=== PATIENT | female | born 1985 | race African-American/Black ===

== ENCOUNTER 2020-07-07 10:21 | Outpatient (CLI) | payer OTHER, SELFPAY ==
[2020-07-07 10:50] LABS: Basophils Percent Auto 0.4 % (0.2-1.2); Eosinophils Percent Auto 0.4 % (0-4.4); Hematocrit 39.6 % (37.0-47.0); Hemoglobin 13.4 g/dL (12.0-15.0); Immature Granulocyte Absolute 0.02 K/mm3 (0.00-0.031); Immature Granulocyte Percent A 0.4 % (0-0.5); Lymphocytes Percent Auto 24.3 % (18.3-44.2); Mean Corpuscular HGB Conc 33.8 g/dl (32-36); Mean Corpuscular Hemoglobin 33.3 pg (26-34); Mean Corpuscular Volume 98.3 fl (80-100); Mean Platelet Volume 8.6 fl (7.4-10.4); Monocytes Absolute Auto 0.3 K/mm3 (0.1-0.6); Monocytes Percent Auto 5.6 % (2.6-8.5); Neutrophils Absolute Auto 3.7 K/mm3 (1.3-6.7); Neutrophils Percent Auto 68.9 % (45.5-73.1); Platelet Count Result 244 k/mm3 (150-375); Red Blood Count 4.03 M/mm3 (4.2-5.4); Red Cell Distribution Width 10.8 % (11.5-14.5); White Blood Count 5.4 K/mm3 (4.5-10.0)
[2020-07-07 11:03] LABS: Alanine Aminotransferase 10 U/L (4-35); Albumin Level 4.2 g/dL (3.5-5.1); Alkaline Phosphatase 48 U/L (38-126); Anion Gap 6 mmol/L (8-16); Aspartate Amino Transferase 19 U/L (14-36); Bilirubin,Total 0.9 mg/dL (0.2-1.3); Blood Urea Nitrogen 9 mg/dL (7-17); Calcium 9.1 mg/dL (8.4-10.2); Carbon Dioxide 29 mmol/L (22-30); Chloride 105 mmol/L (98-107); Cholesterol 165 mg/dL (0-200); Estimated Glomerular Filt Rate > 60; Glucose 89 mg/dL (65-105); HDL Direct 43 mg/dL; Sodium 140 mmol/L (137-145); Triglycerides 53 mg/dL (<150)
[2020-07-07 11:08] LABS: Rheumatoid Factor < 8.6 IU/ML (<12)
[2020-07-07 11:14] LABS: LDL Cholesterol Direct 100 mg/dL
[2020-07-07 11:42] LABS: Erythrocyte Sedimentation Rate 23 mm/hr (0-20)
[2020-07-07 11:49] LABS: Thyroid Stimulating Hormone Reflex 0.563 uIU/mL (0.465-4.68)
[2020-07-11 21:17] LABS: Anti Cyclic Citrullinated Pept <16 Units (<20)
== END 2020-07-07 10:22 | disposition home or self-care (01) ==
LOC: ANHLAB 10:23
PROVIDERS: PCP Family Medicine; Visit Provider Family Medicine
DX: E78.9 Disorder of lipoprotein metabolism, unspecified (principal); M25.50 Pain in unspecified joint; Z13.220 Encounter for screening for lipoid disorders; Z00.00 Encounter for general adult medical examination without abnormal findings
CPT/HCPCS: 36415; 80053; 80061; 84443; 85025; 85652; 86038; 86200; 86430

== ENCOUNTER → 2023-10-21 07:45 | Outpatient (CLI) | payer OTHER, SELFPAY ==
--- NOTE | ~2023-10-21 | MMUS_ITS ---
EXAMINATION: MM diagnostic dimas BI w yaritza, US breast LT limited HISTORY: Recent right 10:00 lump with erythema and warmth, now resolved TECHNIQUE: Bilateral full field ML, MLO and CC and left spot MLO and CC 3-D tomosynthesis images were performed and synthetic 2-D images were generated. CAD analysis was submitted and interpreted. High resolution targeted left breast ultrasound was performed. COMPARISON: None BREAST PARENCHYMAL COMPOSITION: There are scattered areas of fibroglandular density. FINDINGS: MAMMOGRAPHIC FINDINGS: There is an approximately 8 x 10 mm circumscribed mass in the mid inner left breast. No suspicious mass, architectural distortion, malignant calcification, skin thickening or retraction of either breast is noted otherwise. ULTRASOUND: Targeted ultrasound at 9:00 5.5 cm from the nipple reveals an irregular antiparallel hypoechoic shado wing at least 8 mm mass, with adjacent relatively prominent vascularity.The findings are highly sugge stive of malignancy. Ultrasound-guided biopsy is recommended. IMPRESSION: 1. Highly suspicious irregular anti-parallel hypoechoic shadowing mass of left breast at 9:00 5.5 cm from nipple 2. Ultrasound-guided biopsy is recommended BI-RADS category 5, highly suggestive of malignancy. Dr. Negro telephoned the report and ultrasound-guided biopsy recommendation on October 21, 2023 at 0920 h ours to Nurse Roscoe Arredondo. Reviewed, dictated and finalized at location A. TRUCTION SUPERINTENDENT IMPRESSION: 1. Highly suspicious irregular anti-parallel hypoechoic shadowing mass of left breast at 9:00 5.5 cm from nipple 2. Ultrasound-guided biopsy is recommended BI-RADS category 5, highly suggestive of malignancy. Dr. Negro telephoned the report and ultrasound-guided biopsy recommendation on 2023 at 0920 hours to Maria Elena Nurse Roscoe. IMPRESSION: 1. Highly suspicious irregular anti-parallel hypoechoic shadowing mass of left breast at 9:00 5.5 cm from nipple 2. Ultrasound-guided biopsy is recommended BI-RADS category 5, highly suggestive of malignancy. Dr. Negro telephoned the report and ultrasound-guided biopsy recommendation on 2023 at 0920 hours to Maria Elena Nurse Practitioner.
== END ==
PROVIDERS: PCP Nurse Practitioner Obstetrics & Gynecology; Visit Provider Nurse Practitioner Obstetrics & Gynecology
DX: N64.4 Mastodynia (principal); R92.8 Other abnormal and inconclusive findings on diagnostic imaging of breast
CPT/HCPCS: 76642; 77062; 77066; G0279

== ENCOUNTER 2024-01-16 10:53 | Outpatient (CLI) | payer OTHER, SELFPAY ==
[2024-01-16 14:17] LABS: Basophils Percent Auto 0.6 % (0.2-1.2); Eosinophils Percent Auto 0.4 % (0-4.4); Hematocrit 39.6 % (37.0-47.0); Immature Granulocyte Absolute 0.02 K/mm3 (0.00-0.031); Immature Granulocyte Percent A 0.4 % (0-0.5); Lymphocytes Absolute Auto 1.18 K/mm3 (0.9-3.2); Lymphocytes Percent Auto 23.1 % (18.3-44.2); Mean Corpuscular HGB Conc 32.8 g/dl (32-36); Mean Corpuscular Hemoglobin 32.9 pg (26-34); Mean Corpuscular Volume 100.3 fl (80-100); Mean Platelet Volume 8.9 fl (7.4-10.4); Monocytes Absolute Auto 0.4 K/mm3 (0.1-0.6); Monocytes Percent Auto 7.3 % (2.6-8.5); Neutrophils Absolute Auto 3.5 K/mm3 (1.3-6.7); Neutrophils Percent Auto 68.2 % (45.5-73.1); Platelet Count Result 280 k/mm3 (150-375); Red Blood Count 3.95 M/mm3 (4.2-5.4); Red Cell Distribution Width 11.7 % (11.5-14.5); White Blood Count 5.1 K/mm3 (4.5-10.0)
[2024-01-16 15:45] LABS: LDL Cholesterol Direct 114 mg/dL
[2024-01-16 15:56] LABS: Alanine Aminotransferase 13 U/L (6-35); Albumin Level 4.1 g/dL (3.5-5.1); Alkaline Phosphatase 46 U/L (38-126); Anion Gap 4 mmol/L (4-12); Aspartate Amino Transferase 39 U/L (14-36); Blood Urea Nitrogen 10 mg/dL (7-17); Calcium 8.9 mg/dL (8.4-10.2); Carbon Dioxide 25 mmol/L (22-30); Chloride 111 mmol/L (98-107); Cholesterol 164 mg/dL (0-200); Estimated Glomerular Filt Rate > 60; Glucose 93 mg/dL (65-110); HDL Direct 40 mg/dL; Potassium 3.9 mmol/L (3.4-5.0); Sodium 140 mmol/L (137-145); Triglycerides 60 mg/dL (<150)
[2024-01-16 15:58] LABS: Thyroid Stimulating Hormone 0.631 uIU/mL (0.465-4.680)
[2024-01-16 16:38] LABS: Hemoglobin A1C 4.4 % (<5.7)
== END 2024-01-16 10:54 | disposition home or self-care (01) ==
LOC: ANHGOSHLAB 10:54
PROVIDERS: PCP Family Medicine; Visit Provider Nurse Practitioner Family
DX: Z00.00 Encounter for general adult medical examination without abnormal findings (principal); E78.5 Hyperlipidemia, unspecified; E53.8 Deficiency of other specified B group vitamins; R73.03 Prediabetes; Z13.29 Encounter for screening for other suspected endocrine disorder
CPT/HCPCS: 36415; 80053; 80061; 82607; 83036; 84443; 85025

== ENCOUNTER 2025-01-12 15:45 | Outpatient (CLI) | payer OTHER, SELFPAY ==
--- OUTSIDE RECORDS SUMMARY | 2025-01-12 15:48 | XMS_ITS | Clinical Summary ---
Author Organization [facility] Address [facility] [place] [address] Care Team Providers Care Soa Integration Architect Name Role Phone Maria Elena Berumen MD Primary Care Provider Allergies No known active allergies Medications valACYclovir (VALTREX) 500 mg tablet Take 1 tablet (500 mg total) by mouth daily Active Active Problems Problem Noted Date Diagnosed Date Bleeding 09/13/2019 Overview (07/23/2024): Abnormal uterine and vaginal bleeding, unspecified;Practice ID: 0001 Secondary amenorrhea 07/23/2018 Overview (07/23/2024): Secondary amenorrhea;Practice ID: 0001 Assessment & Plan (07/23/2024 11:24 AM TELEPRINTER INSTALLER): Mirena placed approx 03/2018 Herpetic vulvovaginitis 04/22/2018 Overview (07/23/2024): 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;Recorded Elsewhere: No Location: [facility] Source: EHR Chronic: N Practice ID: 0001 Billable Time: 05:00:00 PM Obesity with body mass index 30 or greater 04/10 Overview (07/23/2024): Body mass index (BMI) 33.0-33.9, adult;Recorded Elsewhere: No Location: [facility] Source: EHR Chronic: N Practice ID: [id number] Billable Time: 03:30:00 PM Resolved Problems Problem Noted Date Diagnosed Date Resolved Date Obstructed labor due to shoulder dystocia 02/13/2019 07/23/2024 Overview (07/23/2024): Obstructed labor due to shoulder dystocia;Practice ID: 0001 Acute vaginitis 01/28/2019 07/23/2024 Overview (07/23/2024): Vaginitis;Recorded Elsewhere: No Location: [facility] Source: EHR Chronic: N Practice ID: 0001 Billable Time: 01:00:00 PM Vaginitis in 01/28/201907/23 Overview (07/23/2024): Infection oth prt genital tract in , unsp trimester;Practice ID: 0001 Cyst of vulva 11/24/2018 07/23/2024 Overview (07/23/2024): Vulvar cyst;Practice ID: 0001 Hemorrhage affecting 07/29/2018 07/23/2024 Overview (07/23/2024): Other hemorrhage in early ;Practice ID: 0001 Oral contraceptive use 07/08/201707/23 Overview (07/23/2024): Encounter for initial prescription of contraceptive pills;Practice ID: 0001 Leukorrhea 04/07/2015 07/23/2024 Overview (07/23/2024): Leukorrhea, not specified as infective;Recorded Elsewhere: No Location: [facility] Source: EHR Chronic: N Practice ID: 0001 Billable Time: 11:30:00 AM Glycosuria 04/07/2015 07/23/2024 Overview (07/23/2024): Glycosuria;Recorded Elsewhere: No Location: [facility] Source: EHR Chronic: N Practice ID: 0001 Billable Time: 11:30:00 AM Carbuncle of skin and/or subcutaneous tissue 4 07/23/2024 Overview (07/23/2024): Carbuncle and furuncle of unspecified site;Recorded Elsewhere: No Location: [facility] Source: EHR Chronic: N Practice ID: 0001 Billable Time: 08:30:00 AM Immunizations Immunization Administration Dates Next Due Tdap 12/29/2018 Surgical History Surgery Date Site/Laterality Comments BREAST BIOPSY 11/25/2023 Left Medical History Medical History Date Comments Overweight Acute vaginitis 01/28/2019 Vaginitis;Record ed Elsewhere: No Location: [facility] Source: EHR Chronic: N Practice ID: 0001 Billable Time: 01:00:00 PM Carbuncle of skin and/or sub cutaneous tissue 06/23/2014 Carbuncle and furuncle of un specified site;Recorded Elsewhere: No Location: [facility] Source: EHR Chronic: N Practice ID: 0001 Billable Time: 08:30:00 AM Glycosuria 04/07/2015 Glycosuria;Recor ded Elsewhere: No Location: [facility] Source: EHR Chronic: N Practice ID: 0001 Billable Time: 11:30:00 AM Cyst of vulva 11/24/2018 Vulvar cyst;Prac sidney ID: 0001 Hemorrhage affecting 07/29/2018 O ther hemorrhage in early ;Practice ID: 0001 Obstructed labor due to shou lder dystocia 02/13/2019 Obstructed labor due to shou lder dystocia;Practice ID: 0001 Oral contraceptive use 07/08/2017 Encounter for initial prescription of contraceptive pills;Practice ID: 0001 Vaginitis in 01/28/2019 Infection oth prt genital tract in , unsp trimester;Practice ID: 0001 Family History Medical History Relation Name Comments Brain cancer Maternal Grandmother Breast cancer Mother's Sister Cervical cancer Paternal Grandmother Relation Name Status Comments Maternal Grandmother Mother's Sister Paternal Grandmother Social History Tobacco Use Types Packs/Day Years Used Date Smoking Tobacco: Never Smokeless Tobacco: Never AUDIT-C Answer Date Recorded Q1: How often do you have a drink containing alc ohol? Monthly or less 11/21/2023 Q2: How many drinks containi ng alcohol do you have on a typical day when you are drinking? 1 or 2 11/21/2023 Q3: How often do you have si x or more drinks on one occasion? Less than monthly 11/21/2023 Comments Unknown Sex and Gender Information Value Date Recorded Sex Assigned at Not on file Legal Sex Female 4:45 PM TELEPRINTER INSTALLER Gender Identity Not on file Sexual Orientation Not on file Obstetrics History Last Filed Vital Signs Vital Sign Reading Time Taken Comments Blood Pressure 142/81 07/23/2024 11:08 AM TELEPRINTER INSTALLER Pulse 80 07/23/2024 11:08 AM TELEPRINTER INSTALLER Temperature - - Respiratory Rate 18 07/23/2024 11:08 AM TELEPRINTER INSTALLER Oxygen Saturation 98% 07/23/2024 11:08 AM TELEPRINTER INSTALLER Inhaled Oxygen Concentration - - Weight 112.5 kg (248 lb) 07/23/2024 11:08 AM TELEPRINTER INSTALLER Height 170.2 cm (5' 7) 07/23/2024 11:08 AM TELEPRINTER INSTALLER Body Mass Index 38.84 07/23/2024 11:08 AM TELEPRINTER INSTALLER Plan of Treatment Health Maintenance Due Date Last Done Comments Cervical Cancer Screening 1984 Depression Screening 1984 Hepatitis C Screening 1984 Varicella Vaccines (1 of 2 - 13+ 2-dose series) 1997 Hepatitis B Screening 2002 Regular Well Visit/Exam 18-64 2002 Covid-19 Vaccine ( - 2023-2 5 season) 2024 10/14/2021, 09/23/2021 Influenza Vaccine (Season Ended) 2025 Breast Cancer Screening-Mammogram 07/23/2025 07/23/2024 DTaP/Tdap/Td Vaccine (2 - Td or Tdap) 12/29/2028 12/29/2018 HPV Vaccines Aged Out No longer eligi ble based on patient's age to complete this topic Pneumococcal vaccine <65 Aged Out No longer eligible based on patient's age to complete this topic Medical Devices Implanted Type Area Window Maker Device Identifier Shelf Expiration Date Model / Serial / Lot Bard Peripheral Vascular Ultraclip Bard 17ga 10cm 2 Trigger Permanent Ultrasound [id number] - [id number] Implanted:Qty: 1 on 11/25/2023 at [facility] [employer] [id number] / / Procedures Procedure Name Priority Date/Time Associated Diagnosis Comments DIAGNOSTIC MAMMOGRAM BILATERAL W DANIELLA Schedule Routine, Read Routine (OP Routine) 07/23/2024 12:27 PM TELEPRINTER INSTALLER Abnormal ultrasound of breast Mass of left breast, unspecified quadrant from Last 3 Months or Most Recently Relevant to Health Maintenance Results * Diagnostic Mammogram Bilateral W Daniella (07/23/2024 12:27 PM TELEPRINTER INSTALLER) Anatomical Region Laterality Modality Breast Bilateral Mammography 07/23/2024 2:01 PM TELEPRINTER INSTALLER Impressions 07/23/2024 2:01 PM TELEPRINTER INSTALLER 1. Stable focal asymmetry within the upper central right breast, which is probably benign. Follow-up in one year is recommended to demonstrate 2 years of stability. 2. Stable 1.1 cm mass in the inner central left breast with internal ribbon clip, consistent with biopsy-proven fibroepithelial lesion. OVERALL FINAL ASSESSMENT: BI-RADS Category 3: Probably Benign. RECOMMENDATION: Recommend follow-up diagnostic breast imaging in 12 months with bilateral diagnostic mammogram. Electronically signed by: Rehana Moe M.D. Narrative 07/23/2024 2:01 PM TELEPRINTER INSTALLER EXAMINATION: BILATERAL DIGITAL DIAGNOSTIC MAMMOGRAM INCLUDING CAD AND BILATERAL DIGITAL BREAST TOMOSYNTHESIS; LEFT BREAST SONOGRAM HISTORY: 38-year-old woman with a probably benign right breast focal asymmetry as well as a left breast mass which underwent ultrasound-guided biopsy on 11/25/2023 demonstrating features of a fibroepithelial lesion. COMPARISON: 11/25/2023 and priors dating back to 10/21/2023 TECHNIQUE: Full field digital mammographic views of BOTH breasts were performed, including computer aided detection (CAD) and BILATERAL digital breast tomosynthesis (DBT). Directed ultrasound evaluation of the LEFT breast was performed. BREAST PARENCHYMAL COMPOSITION: There are scattered areas of fibroglandular density. MAMMOGRAM FINDINGS: There is a stable 5 mm focal asymmetry noted within the upper central right breast at posterior depth, unchanged since 10/21/2023. There is no new suspicious mass, grouped palpitations, architectural distortion noted within the right breast. Stable oval 0.8 cm equal density mass within the inner central left breast at mid depth with internal ribbon clip, consistent with the biopsy-proven fibroepithelial lesion. No new suspicious mass, grouped palpitations, architectural distortion is noted within the left breast SONOGRAM FINDINGS: Targeted sonographic images in the left breast the 9 o'clock position 5.5 cm from the nipple demonstrates an stable hypoechoic mass measuring 0.9 x 0.8 x 1.1 cm with mixed posterior acoustic features and no definite internal vascularity. There is an echogenic foci internally, likely representing the tissue marker clip. Procedure Note Rehana Moe MD - 07/23/2024 EXAMINATION: BILATERAL DIGITAL DIAGNOSTIC MAMMOGRAM INCLUDING CAD AND BILATERAL DIGITAL BREAST TOMOSYNTHESIS; LEFT BREAST SONOGRAM HISTORY: 38-year-old woman with a probably benign right breast focal asymmetry as well as a left breast mass which underwent ultrasound-guided biopsy on 11/25/2023 demonstrating features of a fibroepithelial lesion. COMPARISON: 11/25/2023 and priors dating back to 10/21/2023 TECHNIQUE: Full field digital mammographic views of BOTH breasts were performed, including computer aided detection (CAD) and BILATERAL digital breast tomosynthesis (DBT). Directed ultrasound evaluation of the LEFT breast was performed. BREAST PARENCHYMAL COMPOSITION: There are scattered areas of fibroglandular density. MAMMOGRAM FINDINGS: There is a stable 5 mm focal asymmetry noted within the upper central right breast at posterior depth, unchanged since 10/21/2023. There is no new suspicious mass, grouped palpitations, architectural distortion noted within the right breast. Stable oval 0.8 cm equal density mass within the inner central left breast at mid depth with internal ribbon clip, consistent with the biopsy-proven fibroepithelial lesion. No new suspicious mass, grouped palpitations, architectural distortion is noted within the left breast SONOGRAM FINDINGS: Targeted sonographic images in the left breast the 9 o'clock position 5.5 cm from the nipple demonstrates an stable hypoechoic mass measuring 0.9 x 0.8 x 1.1 cm with mixed posterior acoustic features and no definite internal vascularity. There is an echogenic foci internally, likely representing the tissue marker clip. IMPRESSION: 1. Stable focal asymmetry within the upper central right breast, which is probably benign. Follow-up in one year is recommended to demonstrate 2 years of stability. 2. Stable 1.1 cm mass in the inner central left breast with internal ribbon clip, consistent with biopsy-proven fibroepithelial lesion. OVERALL FINAL ASSESSMENT: BI-RADS Category 3: Probably Benign. RECOMMENDATION: Recommend follow-up diagnostic breast imaging in 12 months with bilateral diagnostic mammogram. Electronically signed by: Rehana Moe M.D. Krystyna Rod DECKHAND CRAB BOAT IMG MAMMO PROCEDURES Final Result from Last 3 Months or Most Recently Relevant to Health Maintenance Insurance [facility] PLUS [facility] CHO[facility] PLUS Care Teams Soa Integration Architect Relationship Specialty Start Date End Date Maria Elena Berumen MD [facility] [place] [address] PCP - General Family Practice 10/29/23
--- OUTSIDE RECORDS SUMMARY | 2025-01-12 15:48 | XMS_ITS | Referral Summary ---
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;Recorded Elsewhere: No Location: [facility] Source: EHR Chronic: N Practice ID: 0001 Billable Time: 05:00:00 PM Obesity with body mass index 30 or greater 04/10 Overview (07/23/2024): Body mass index (BMI) 33.0-33.9, adult;Recorded Elsewhere: No Location: [facility] Source: EHR Chronic: N Practice ID: 0001 Billable Time: 03:30:00 PM Resolved Problems Problem Noted Date Diagnosed Date Resolved Date Obstructed labor due to shoulder dystocia 02/13/2019 07/23/2024 Overview (07/23/2024): Obstructed labor due to shoulder dystocia;Practice ID: 0001 Acute vaginitis 01/28/2019 07/23/2024 Overview (07/23/2024): Vaginitis;Recorded Elsewhere: No Location: [facility] Source: EHR Chronic: N Practice ID: [...] not specified as infective;Recorded Elsewhere: No Location: [facility] Source: EHR Chronic: N Practice ID: 0001 Billable Time: 11:30:00 AM Glycosuria 04/07/2015 07/23/2024 Overview (07/23/2024): Glycosuria;Recorded Elsewhere: No Location: [facility] Source: EHR Chronic: N Practice ID: 0001 Billable Time: 11:30:00 AM Carbuncle of skin and/or subcutaneous tissue 4 07/23/2024 Overview (07/23/2024): Carbuncle and furuncle of unspecified site;Recorded Elsewhere: No Location: [facility] Source: EHR Chronic: N Practice ID: 0001 Billable Time: 08:30:00 AM Immunizations Immunization Administration Dates Next Due Tdap 12/29/2018 Social History Tobacco Use Types Packs/Day Years [...] on file Legal Sex Female 4:45 PM SEARCH COORDINATOR Gender Identity Not on file Sexual Orientation Not on file Last Filed Vital Signs Vital Sign Reading Time Taken Comments Blood Pressure 142/81 07/23/2024 11:08 AM SEARCH COORDINATOR Pulse 80 07/23/2024 11:08 AM SEARCH COORDINATOR Temperature - - Respiratory Rate 18 07/23/2024 11:08 AM SEARCH COORDINATOR Oxygen Saturation 98% 07/23/2024 11:08 AM SEARCH COORDINATOR Inhaled Oxygen Concentration - - Weight 112.5 kg (248 lb) 07/23/2024 11:08 AM SEARCH COORDINATOR Height 170.2 cm (5' 7) 07/23/2024 11:08 AM SEARCH COORDINATOR Body Mass Index 38.84 07/23/2024 11:08 AM SEARCH COORDINATOR Plan of Treatment Not on file Medical Devices Implanted Type Area Assistant Quality Manager Device Identifier Shelf Expiration Date Model / Serial / Lot Bard Peripheral Vascular Ultraclip Bard 17ga 10cm 2 Trigger Permanent Ultrasound [id number] - [id number] Implanted:Qty: 1 on 11/25/2023 at [facility] [employer] [id number] / / Procedures Procedure Name Priority Date/Time Associated Diagnosis Comments DIAGNOSTIC MAMMOGRAM BILATERAL W DANIELLA Schedule Routine, Read Routine (OP Routine) 07/23/2024 12:27 PM SEARCH COORDINATOR Abnormal ultrasound of breast Mass of left breast, unspecified quadrant from Last 3 Months or Most Recently Relevant to Health Maintenance Results * Diagnostic Mammogram Bilateral W Daniella (07/23/2024 12:27 PM SEARCH COORDINATOR) Anatomical Region Laterality Modality Breast Bilateral Mammography 07/23/2024 2:01 PM SEARCH COORDINATOR Impressions 07/23/2024 2:01 PM SEARCH COORDINATOR 1. Stable focal asymmetry within the upper [...] with bilateral diagnostic mammogram. Electronically signed by: Rehnaa Moe M.D. Narrative 07/23/2024 2:01 PM SEARCH COORDINATOR EXAMINATION: BILATERAL DIGITAL DIAGNOSTIC MAMMOGRAM INCLUDING CAD [...] mammogram. Electronically signed by: Rehana Moe M.D. us Krystyna Rod BLUNGER IMG MAMMO PROCEDURES Final Result from Last 3 Months or Most Recently Relevant to Health Maintenance Insurance [facility] PL[facility]PPO Address: [address] [address] [place] [address] [facility]/PPO Address: [address] [place] [address] Care Teams Dining Room Hostess Relationship Specialty Start Date End Date Maria Elena Berumen MD [address] [place] [address] PCP - General Family Practice 10/29/23
--- OUTSIDE RECORDS SUMMARY | 2025-01-12 15:48 | XMS_ITS | Clinical Summary ---
Author Organization [facility] Address [address] [place] [address] Care Team Providers Care Pitch Filler Name Role Phone Unavailable Primary Care Provider Unavailabl e Source Comments [facility],non-owned Affiliates and Associated Physician Practices is amultiple site organization consisting of ambulatory clinics and hospital sitesin [place], [place], [place] and [place]. This disclosure is being madepursuant to the Care Everywhere program and may not contain all information available regarding this patient. Last updated 18.[facility] Allergies No known active allergies Active Problems No known active problems Social History Tobacco Use Types Packs/Day Years Used Date Smoking Tobacco: Never Assessed Comments Unknown Sex and Gender Information Value Date Recorded Sex Assigned at Not on file Legal Sex Female 4:22 PM SECURITY THREAT ANALYST Gender Identity Not on file Sexual Orientation Not on file Plan of Treatment Health Maintenance Due Date Last Done Comments LIPID TESTING 1984 MAMMOGRAM 1984 HIV SCREENING 1999 HEPATITIS C SCREENING 08/09/2002 DTAP/TDAP/TD VACCINES (1 - Tdap) 2003 HEPATITIS B VACCINE (1 of 3 - 19+ 3-dose series) 2003 COVID-19 VACCINE ( - 2023-2 5 season) 2024 DEPRESSION SCREENING 08/18/2024 INFLUENZA VACCINE (Season Ended) 2025 ZOSTER VACCINE (1 of 2) 2034 HIB VACCINE Aged Out No longer eligi ble based on patient's age to complete this topic HPV VACCINE Aged Out No longer eligi ble based on patient's age to complete this topic MENINGOCOCCAL (Group B) VACC INE SHARED DECISION-MAKING Aged Out No longer eligibl e based on patient's age to complete this topic MENINGOCOCCAL GROUPS A/C/Y/W VACCINE Aged Out No longer eligible b ased on patient's age to complete this topic PNEUMOCOCCAL VACCINE Aged Out No long er eligible based on patient's age to complete this topic
[2025-01-12 19:33] LABS: Basophils Percent Auto 0.3 % (0.2-1.2); Eosinophils Percent Auto 0.4 % (0-4.4); Hematocrit 38.3 % (37.0-47.0); Hemoglobin 12.6 g/dL (12.0-15.0); Immature Granulocyte Absolute 0.01 K/mm3 (0.00-0.031); Immature Granulocyte Percent A 0.1 % (0-0.5); Lymphocytes Absolute Auto 1.52 K/mm3 (0.9-3.2); Lymphocytes Percent Auto 22.3 % (18.3-44.2); Mean Corpuscular HGB Conc 32.9 g/dl (32-36); Mean Corpuscular Hemoglobin 32.4 pg (26-34); Mean Corpuscular Volume 98.5 fl (80-100); Mean Platelet Volume 8.9 fl (7.4-10.4); Monocytes Absolute Auto 0.4 K/mm3 (0.1-0.6); Monocytes Percent Auto 6.4 % (2.6-8.5); Neutrophils Absolute Auto 4.8 K/mm3 (1.3-6.7); Neutrophils Percent Auto 70.5 % (45.5-73.1); Platelet Count Result 293 k/mm3 (150-375); Red Blood Count 3.89 M/mm3 (4.2-5.4); Red Cell Distribution Width 11.4 % (11.5-14.5); White Blood Count 6.8 K/mm3 (4.5-10.0)
[2025-01-12 19:52] LABS: Free T4 Free Thyroxine 1.09 ng/dL (0.78-2.19)
[2025-01-12 19:55] LABS: Alanine Aminotransferase 14 U/L (6-35); Albumin Level 4.2 g/dL (3.5-5.1); Alkaline Phosphatase 44 U/L (38-126); Anion Gap 5 mmol/L (4-12); Aspartate Amino Transferase 25 U/L (14-36); Bilirubin,Total 0.5 mg/dL (0.2-1.3); Blood Urea Nitrogen 13 mg/dL (7-17); Calcium 9.9 mg/dL (8.4-10.2); Carbon Dioxide 30 mmol/L (22-30); Chloride 103 mmol/L (98-107); Cholesterol 170 mg/dL (0-200); Estimated Glomerular Filt Rate > 60; Glucose 89 mg/dL (65-110); HDL Direct 37 mg/dL; Potassium 4.1 mmol/L (3.4-5.0); Sodium 138 mmol/L (137-145); Triglycerides 82 mg/dL (<150)
[2025-01-12 20:12] LABS: LDL Cholesterol Direct 97 mg/dL
[2025-01-12 20:27] LABS: Thyroid Stimulating Hormone 0.931 uIU/mL (0.465-4.680)
== END 2025-01-12 15:46 | disposition home or self-care (01) ==
LOC: ANHGOSHLAB 15:46
PROVIDERS: PCP Family Medicine; Visit Provider Nurse Practitioner Family
DX: E78.5 Hyperlipidemia, unspecified (principal); I10 Essential (primary) hypertension; E55.9 Vitamin D deficiency, unspecified; D64.9 Anemia, unspecified; L65.9 Nonscarring hair loss, unspecified; E53.8 Deficiency of other specified B group vitamins
CPT/HCPCS: 36415; 80053; 80061; 82306; 82607; 82728; 84439; 84443; 85025

== ENCOUNTER → 2025-07-19 07:53 | Outpatient (CLI) | payer OTHER, SELFPAY ==
--- OUTSIDE RECORDS SUMMARY | 2025-07-19 07:59 | XMS_ITS | Clinical Summary ---
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;Recorded Elsewhere: No Location: [facility] Source: EHR Chronic: N Practice ID: [id number] Billable Time: 05:00:00 PM Obesity with body mass index 30 or greater 04/10 Overview (07/23/2024): Body mass index (BMI) 33.0-33.9, adult;Recorded Elsewhere: No Location: [facility] Source: EHR Chronic: N Practice ID: [id number] Billable Time: 03:30:00 PM Resolved Problems Problem Noted Date Diagnosed Date Resolved Date Obstructed labor due to shoulder dystocia 02/13/2019 07/23/2024 Overview (07/23/2024): Obstructed labor due to shoulder dystocia;Practice ID: [id number] Acute vaginitis 01/28/2019 07/23/2024 Overview (07/23/2024): Vaginitis;Recorded Elsewhere: No Location: [facility] Source: EHR Chronic: N Practice ID: [...] not specified as infective;Recorded Elsewhere: No Location: [facility] Source: EHR Chronic: N Practice ID: [id number] Billable Time: 11:30:00 AM Glycosuria 04/07/2015 07/23/2024 Overview (07/23/2024): Glycosuria;Recorded Elsewhere: No Location: [facility] Source: EHR Chronic: N Practice ID: [id number] Billable Time: 11:30:00 AM Carbuncle of skin and/or subcutaneous tissue 4 07/23/2024 Overview (07/23/2024): Carbuncle and furuncle of unspecified site;Recorded Elsewhere: No Location: [facility] Source: EHR Chronic: N Practice ID: [id number] Billable Time: 08:30:00 AM Encounters Date Type Department Care Team Description [facility] [address] [place] [address] [address] [place] [address] Maureen Guaman PA Patient issue/concern 06/[facility] [address] [place] [address] 8 [place] [address] Aliza Langston from Last 3 Months Immunizations Immunization Administration Dates Next Due Tdap 12/29/2018 Surgical History Surgery Date Site/Laterality Comments BREAST BIOPSY 11/25/2023 Left Medical History Medical History Date Comments Overweight Acute vaginitis 01/28/2019 Vaginitis;Record ed Elsewhere: No Location: [facility] Source: EHR Chronic: N Practice ID: [id number] Billable Time: 01:00:00 PM Carbuncle of skin and/or sub cutaneous tissue 06/23/2014 Carbuncle and furuncle of un specified site;Recorded Elsewhere: No Location: [facility] Source: EHR Chronic: N Practice ID: [id number] Billable Time: 08:30:00 AM Glycosuria 04/07/2015 Glycosuria;Recor ded Elsewhere: No Location: [facility] Source: EHR Chronic: N Practice ID: [...] on file Legal Sex Female 4:45 PM CORE ANALYST Gender Identity Not on file Sexual Orientation Not on file Last Filed Vital Signs Vital Sign Reading Time Taken Comments Blood Pressure 142/81 07/23/2024 11:08 AM CORE ANALYST Pulse 80 07/23/2024 11:08 AM CORE ANALYST Temperature - - Respiratory Rate 18 07/23/2024 11:08 AM CORE ANALYST Oxygen Saturation 98% 07/23/2024 11:08 AM CORE ANALYST Inhaled Oxygen Concentration - - Weight 112.5 kg (248 lb) 07/23/2024 11:08 AM CORE ANALYST Height 170.2 cm (5' 7) 07/23/2024 11:08 AM CORE ANALYST Body Mass Index 38.84 07/23/2024 11:08 AM CORE ANALYST Plan of Treatment Health Maintenance Due Date Last Done Comments Cervical Cancer Screening 1984 Depression Screening 1984 Hepatitis C Screening 1984 Varicella Vaccines (1 of 2 - 13+ 2-dose series) 1997 Hepatitis B Screening 2002 Regular Well Visit/Exam 18-64 2002 HPV Vaccines (1 - 3-dose SCD M series) 2011 Covid-19 Vaccine (3 - 2024-2 6 season) 2025 10/14/2021, 09/23/2021 Influenza Vaccine (#1) 2025 Breast Cancer Screening-Mammogram 07/23/2025 07/23/2024 DTaP/Tdap/Td Vaccine (2 - Td or Tdap) 12/29/2028 12/29/2018 Pneumococcal vaccine <65 Aged Out No longer eligible based on patient's age to complete this topic Medical Devices Implanted Type 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 Device Identifier Shelf Expiration Date Model / Serial / Lot [employer] Peripheral V[employer] Ultraclip Bard 17ga 10cm 2 Trigger Permanent Ultrasound [id number] - [id number] Implanted:Qty: 1 on 11/25/2023 at [facility] [employer] [id number] / / Procedures Procedure Name Priority Date/Time Associated Diagnosis Comments DIAGNOSTIC MAMMOGRAM BILATERAL W DANIELLA Schedule Routine, Read Routine (OP Routine) 07/23/2024 12:27 PM CORE ANALYST Abnormal ultrasound of breast Mass of left breast, unspecified quadrant from Last 3 Months or Most Recently Relevant to Health Maintenance Results * Diagnostic Mammogram Bilateral W Daniella (07/23/2024 12:27 PM CORE ANALYST) Anatomical Region Laterality Modality Breast Bilateral Mammography 07/23/2024 2:01 PM CORE ANALYST Impressions 07/23/2024 2:01 PM CORE ANALYST 1. Stable focal asymmetry within the upper [...] Rehana Moe M.D. Narrative 07/23/2024 2:01 PM CORE ANALYST EXAMINATION: BILATERAL DIGITAL DIAGNOSTIC MAMMOGRAM INCLUDING CAD [...] signed by: Rehana Moe M.D. Krystyna Rod NP IMG MAMMO PROCEDURES Final Result from Last 3 Months or Most Recently Relevant to Health Maintenance Insurance [facility] [employer] HMO/PPO Address: [place] [id number] [place] [id number] [facility] [facility] HMO/PPO Address: [address] [address] [place] [phone] Care Teams Assessment Director Relationship Specialty Start Date End Date Maria Elena Berumen MD [id number] [facility] [address] [place] [address] PCP - General Family Practice 10/29/23
--- OUTSIDE RECORDS SUMMARY | 2025-07-19 07:59 | XMS_ITS | Clinical Summary ---
Author Organization [facility] Address [address] [place] [address] Care Team Providers Care Library Information Technician Name Role Phone Unavailable Primary Care Provider Unavailabl e Social History Tobacco Use Types Packs/Day Years Used Date Smoking Tobacco: Never Assessed Comments Unknown Sex and Gender Information Value Date Recorded Sex Assigned at Not on file Legal Sex Female 6:46 PM CDT Gender Identity Not on file Sexual Orientation Not on file Plan of Treatment Health Maintenance Due Date Last Done Comments Cervical Cancer Screening Pa p Smear (Age 30 to 64) Every 3 Years 1984 Annual Physical 1987 Hepatitis C 2002 DTaP, Tdap and Td Vaccines ( 1 - Tdap) 2003 Hepatitis B Vaccines (1 of 3 - 19+ 3-dose series) 2003 HPV Vaccines (1 - 3-dose SCD M series) 2011 Cervical Cancer Screening Pa p with HPV Testing (Age 30 to 64) Every 5 Years 2014 Cervical Cancer Screening with HPV 2014 Mammogram Screening 2024 COVID-19 Vaccine (2024-2 6 season) 2025 Influenza Adult (#1) 2025 Hepatitis A Vaccines Aged Out No long er eligible based on patient's age to complete this topic Meningococcal B Vaccine Aged Out No l onger eligible based on patient's age to complete this topic Meningococcal Vaccine Aged Out No zana gabbie eligible based on patient's age to complete this topic Pneumococcal Vaccine: Pediat rics (0 to 5 Years) and At-Risk Patients (6 to 49 Years) Aged Out No longer eligible b ased on patient's age to complete this topic RSV Immunizations Under 20 Months Aged Out No longer eligible based on patient's age to complete this topic
--- OUTSIDE RECORDS SUMMARY | 2025-07-19 07:59 | XMS_ITS | Clinical Summary ---
Author Organization [facility] Address [address] [place] [address] Care Team Providers Care Marine Radio Installer And Servicer Name Role Phone Unavailable Primary Care Provider Unavailabl e Source Comments [facility],non-owned Affiliates and Associated Physician Practices is amultiple site organization consisting of ambulatory clinics and hospital sitesin [place], [place], [place] and [place]. This disclosure is being madepursuant to the Care Everywhere program and may not contain all information available regarding this patient. Last updated 18.[facility] Allergies No known active allergies Active Problems No known active problems Social History Tobacco Use Types Packs/Day Years Used Date Smoking Tobacco: Never Assessed Comments Unknown Sex and Gender Information Value Date Recorded Sex Assigned at Not on file Legal Sex Female 4:22 PM SUPERVISOR FINAL Gender Identity Not on file Sexual Orientation Not on file Plan of Treatment Health Maintenance Due Date Last Done Comments LIPID TESTING 1984 MAMMOGRAM 1984 HIV SCREENING 1999 HEPATITIS C SCREENING 08/09/2002 DTAP/TDAP/TD VACCINES (1 - Tdap) 2003 HEPATITIS B VACCINE (1 of 3 - 19+ 3-dose series) 2003 PAP SMEAR 2005 HPV VACCINE (1 - 3-dose SCDM series) 2011 Cervical Cancer Screening 2014 PAP with HPV 2014 DEPRESSION SCREENING 08/18/2024 COVID-19 VACCINE (1 - 2024-2 6 season) 2025 INFLUENZA VACCINE (#1) 2025 ZOSTER VACCINE (1 of 2) 2034 [...]
--- OUTSIDE RECORDS SUMMARY | 2025-07-19 07:59 | XMS_ITS | Data Portability ---
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 Patient will come back in a year unless there are new symptoms. [email or web address] Not available 07/30/2022 16:09:26 09/23/2023 09/23/2023 Annual gynecological exam performed. Patient will come back in a year unless there are new symptoms. Not available 09/23/2023 18:51:56 10/04/2024 10/04/2024 Annual gynecological exam performed. Patient will come back in a year unless there are new symptoms. [email or web address] Not available 09/24/2024 11:56:27 Plan of Treatment Reminders Order Date Submit Date Provider Last Modified By Organization Details Last Modified Time Details Appointments None recorded. Lab None recorded. Referral None recorded. Procedures None recorded. Surgeries None recorded. Imaging US, breast, unilateral, w/ axilla 2023 024 [email or web address] [facility], [address], [place], [address], 09:40:06 Medication Orders Diflucan 150 mg tablet 2023 024 [id number], [address], [place], [place], [id number], 5 11:56:40 nystatin-tr iamcinolone 100,000 unit/gram-0 .1 % topical ointment 2022 023 [facility] #[id number], [address], [place], [place], [id number], 4 18:54:00 valacyclovi r 500 mg tablet 2021 022 JOSELUIS [facility] #[id number], [address] [facility], [place], [place], [id number], 2 16:22:29 Patient TargetsNo targets recorded. Patient InstructionsNo instructions recorded. Reason for Referral None Reported. 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 Cervi x, TMZ, biops y: -Rare fragm ents of dyspl astic squam ous epith elium , favor low-g rade squam ous intra epith elial lesio n (SERENA- 1), see comme nt. -Sepa rate fragm ents of endoc ervic al epith elium , negat rema for dyspl wendi B. Endoc ervix , curet tage: -Endo cervi jase epith elium , negat rema for dyspl wendi. Elect gregory chew rebekah d by Jose Martin Meneses MD on 2021 at 12:25 PM ----- ----- ----- ----- ----- ----- ----- ----- ----- ----- ----- ----- ----- ----- ----- ----- ----- ---- COMME NT: The cervi jase biops y (part A) shows numer ous fragm ents of detac hed squam ous and endoc ervic al epith elium . Dyspl astic gonzalez es are are seen focal ly in the squam ous epith elium and are consi stent with SERENA-1 . Defin itive gradi ng is precl uded by the detac hed and fragm ented natur e of the speci men. [facility] with posit rema HPV. CLINI JASE INFOR MATIO N: not provi ded MICRO SCOPI C DESCR IPTIO N: A micro scopi c exami natio n was perfo rmed. GROSS DESCR IPTIO N: A. Cervi x. The speci men is label ed [facility], melany mondragon cs and TMZ Cx Bx. Recei elvis in forma jewell is a 0.8 x 0.3 x 0.1 cm aggre gate of mucus and minut e white -valencia tissu e. The entir e speci men is submi tted in one casse tte. Gross ed by Dior Guillermo. Endoc ervix . The speci men is label ed [facility], dennisog raphi cs and ECC . Recei elvis in forma jewell is a 1.5 x 0.8 x 0.1 [address] aggre gate of mucus and minut e valencia-b rown tissu e. The entir e speci men is submi tted in one casse tte. 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 Shift in chevy sugge stive of bacte rial vagin osis. Elect gregory welch d by Stephanie Riddle on 08/01 at 6:15 PM ----- ----- ----- ----- ----- ----- ----- ----- ----- ----- ----- ----- ----- ----- ----- ----- ----- ---- HPV RESUL TS: HPV mRNA E6/E7 : No HPV mRNA Detec anai NOTE: This high risk HPV mRNA assay detec ts fourt een high- risk HPV types (16, 18, 31, 33, 35, 39, 45, 51, 52, 56, 58, 59, 66, 68) witho ut diffe renti ation . COMME NT: Note: This speci men was revie wed by a Cytot echno logis t and/o r Patho logis t (as indic ated in this repor t) after evalu ation using the Thinp rep Imagi ng Syste m. CLINI JASE INFOR MATIO N: Menst rual Statu s: LMP (if appli cable ): Clini jase Histo ry/Pr eviou s Pap: Type of Neopl wendi (if appli cable ): Signi fican t Clini jase Findi ngs: Other Histo ry: Hormo lani (if appli cable ): PAP EDUCA SAIMA L NOTE: The Pap Test is a scree vicky test with an inher ent false negat rema rate. Liqui d-bas ed sampl ing may decre ase, but will not elimi meredith, false negat rema resul ts. A negat rema resul t does not precl ude the prese nce and/o r devel opmen t of disea se, since the prese nce of abnor mal cells in the sampl e depen ds on the locat ion of the lesio n and sampl ing techn ique. Elizabeth nued regul ar scree vicky is the best metho d of cance r preve ntion . If repor anai cytol ogic findi ng do not corre late with physi jase and/o r histo rical findi ngs, furth er inves tigat ion is recom cholo d, as clini jenifer matta nted. Not Available [facility] (Lab) [address] , [place], [address], 08/01/2022 19:17:55 07/30/20 22 07/30/2022 CT/GC (DAVIDA) , THINP REP VIAL chlamydia trachomatis, PCR Negati ve negati ve Not Available [facility] (Lab) [address], [place], [address], 08/01/2022 19:17:56 07/30/20 22 07/30/2022 CT/GC (DAVIDA) , THINP REP VIAL neisseria gonorrhoeae, PCR Negati ve negati ve Not Available [facility] (Lab) [address], [place], [address], 08/01/2022 19:17:56 07/30/20 22 07/30/2022 TRICH OMONA S VAGIN KARLI (RRNA ) trichomonas vaginalis ribosomal RNA (rrna) Negati ve negati ve Not Available [facility] (Lab) [address], [place], [address], 08/01/2022 19:17:56 12/11/19 23 12/10/2022 CT/GC AND TRICH OMONA S VAGIN KARLI (RRNA ), SWAB chlamydia trachomatis, PCR NEGATI VE negati ve Not Available [facility] (Lab) [address], [place], [address], 12/11/2022 13:18:33 12/11/19 23 12/10/2022 CT/GC AND TRICH OMONA S VAGIN KARLI (RRNA ), SWAB neisseria gonorrhoeae, PCR NEGATI VE negati ve Not Available [facility] (Lab) [address], [place], [address], 12/11/2022 13:18:33 12/11/19 23 12/10/2022 CT/GC AND TRICH OMONA S VAGIN KARLI (RRNA ), SWAB trichomonas vaginalis ribosomal RNA (rrna) NEGATI VE negati ve Not Available [facility] (Lab) [address], [place], [address], 12/11/2022 13:18:33 09/24/19 24 09/24/2023 IMAGE GUIDE D PAP AND HPV REGAR DLESS image guided Pap, HPV regardless of Pap result SEE RESULT S BELOW CASE REPOR T: Cytol ogy Gynec ologi jase Repor t Case: [id number] 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 Funga l organ isms morph ologi jenifer consi stent with Marcie da spp. Elect gregory chew rebekah d by Kathryn Gross ret, CT on 2023 at 4:37 PM ----- ----- ----- ----- ----- ----- ----- ----- ----- ----- ----- ----- ----- ----- ----- ----- ----- ---- HPV RESUL TS: HPV mRNA E6/E7 : No HPV mRNA Detec anai NOTE: This high risk HPV mRNA assay detec ts fourt een high- risk HPV types (16, 18, 31, 33, 35, 39, 45, 51, 52, 56, 58, 59, 66, 68) witho ut diffe renti ation . COMME NT: This speci men was revie wed by a Cytot echno logis t and/o r Patho logis t (as indic ated in this repor t) after evalu ation using the Thinp rep Imagi ng Syste m. CLINI JASE INFOR MATIO N: Menst rual Statu s: LMP (if appli cable ): Clini jase Histo ry/Pr eviou s Pap: Type of Neopl wendi (if appli cable ): Signi fican t Clini jase Findi ngs: Other Histo ry: Hormo lani (if appli cable ): PAP EDUCA SAIMA L NOTE: The Pap Test is a scree vicky test with an inher ent false negat rema rate. Liqui d-bas ed sampl ing may decre ase, but will not elimi meredith, false negat rema resul ts. A negat rema resul t does not precl ude the prese nce and/o r devel opmen t of disea se, since the prese nce of abnor mal cells in the sampl e depen ds on the locat ion of the lesio n and sampl ing techn ique. Elizabeth nued regul ar scree vicky is the best metho d of cance r preve ntion . If repor anai cytol ogic findi ng do not corre late with physi jase and/o r histo rical findi ngs, furth er inves tigat ion is recom cholo d, as clini jenifer warrrosey nted. Not Available [facility] (Lab) [address], [place], [address], 09/29/2023 17:40:48 09/24/19 24 09/24/2023 CT/GC (DAVIDA) , THINP REP VIAL chlamydia trachomatis, PCR Negati ve negati ve Not Available [facility] (Lab) [address], [place], [address], 09/29/2023 17:40:49 09/24/19 24 09/24/2023 CT/GC (DAVIDA) , THINP REP VIAL neisseria gonorrhoeae, PCR Negati ve negati ve Not Available [facility] (Lab) [address], [place], [address], 09/29/2023 17:40:49 09/24/19 24 09/24/2023 TRICH OMONA S VAGIN KARLI (RRNA ) trichomonas vaginalis ribosomal RNA (rrna) Negati ve negati ve Not Available [facility] (Lab) [address], [place], [address], 09/29/2023 17:40:49 10/21/19 24 10/21/2023 MAMMO , diagn ostic , digit al, bilat eral No observ ation record ed. [email or web address] [facility] [address], [place], [address], 10/28/2023 17:02:15 0310/21/2023 MAMMO , diagn ostic , digit al, bilat eral No observ ation record ed. [email or web address] [facility] [address], [place], [address], 11/06/2023 11:35:09 12/04/19 24 10/21/2023 imagi ng/di agnos tic resul t No observ ation record ed. [email or web address] [facility] [address], [place], [address], 12/10/2023 14:16:17 Result Notes None recorded. Problems Name Problem SNOMED Code Status Onset Date Resolution Date Notes Provider Name and Address Organization Details Recorded Time Screenin g for malignan t neoplasm of cervix Completed 201007/27/2021 Screenin g for malignan t neoplasm s of the cervix;R ecorded Elsewher e: No Locat ion: [facility] S ource: EHR Data Typist kolton: N Prachi ce ID: 0001 Dom lable Time: 01:00:00 PM Tammy ruiz [facility] 13:14:31 Carbuncl e of skin AND/OR subcutan eous tissue Completed 201307/27/2021 Carbuncl e and furuncle of unspecif ied site;Rec orded Elsewher e: No Locat ion: [facility] S ource: EHR Data Typist kolton: Brandie Velarde ce ID: 0001 Dom lable Time: 08:30:00 AM Tammy ruiz [facility] 13:15:22 Glycosur ia [id number] Completed 201407/27/2021 Glycosur ia;Recor ded Elsewher e: No Locat ion: [facility] S ource: EHR Data Typist kolton: Brandie Velarde ce ID: 0001 Dom lable Time: 11:30:00 AM Tammy ruiz [facility] 13:15:20 Leukorrh ea [id number] Completed 201407/27/2021 Leukorrh ea, not specifie d as infectiv e;Record ed Elsewher e: No Locat ion: Justin santos [facility] S ource: EHR Data Typist kolton: N Mickyti ce ID: 0001 Dom lable Time: 11:30:00 AM Tammy ruiz, [facility] 13:14:39 Vaginiti s and vulvovag initis Completed 201407/27/2021 Vaginiti s;Record ed Elsewher e: No [facility] S ource: EHR Data Typist kolton: N Mickyti ce ID: 0001 Dom lable Time: 11:30:00 AM Tammy ruiz, [facility] 13:14:33 Speciali zed medical examinat ion Completed 201407/27/2021 Other specifie d chlamydi al diseases ;Recorde d Elsewher e: No Locat ion: Mookie tom [facility] S ource: EHR Data Typist kolton: N Mickyti ce ID: 0001 Dom lable Time: 01:30:00 PM Tammy ruiz, [facility] 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 13:15:24 Adult health examinat ion Completed 201407/27/2021 ROUTINE MEDICAL EXAM;Rec orded Elsewher e: No Locat ion: Mookie tom [facility] S ource: EHR Data Typist kolton: N Mickyti ce ID: 0001 Dom lable Time: 01:30:00 PM Tammy ruiz [facility] 13:15:02 Venereal disease screenin g Completed 201407/27/2021 Screenin g examinat ion for venereal disease; Practice ID: 0001 Tammy ruiz [facility] 13:14:30 Syphilis test finding [id number] Completed 201607/27/2021 Encntr screen for infectio ns w sexl mode of transmis s;Record ed Elsewher e: No Locat ion: [facility] S ource: EHR Data Typist kolton: N Practi ce ID: 0001 Dom lable Time: 01:30:00 PM Tammy ruiz [facility] 13:15:16 Uses combined oral contrace ption [id number] Completed 201607/27/2021 Encounte r for initial prescrip tion of contrace ptive pills;Pr actice ID: 0001 Tammy ruiz [facility] 13:15:01 Prescrip tion of contrace ption Completed 201707/27/2021 Encounte r for initial prescrip tion of vagnl ring;Pra ctice ID: 0001 Tammy ruiz [facility] 13:15:29 Finding of sensatio n of breast Completed 201707/27/2021 Mastodyn ia;Pract ice ID: 0001 Tammy ruiz [facility] 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 13:15:09 Body mass index 30+ - obesity [id number] Completed 201707/27/2021 Body mass index (BMI) 33.0-33. 9, adult;Re corded Elsewher e: No Locat ion: [facility] S ource: EHR Data Typist kolton: N Practi ce ID: 0001 Dom lable Time: 03:30:00 PM Tammy ruiz, [facility] 13:14:26 Infectio n screenin g Completed 201707/27/2021 Encounte r for screenin g for oth infec/pa rastc diseases ;Recorde d Elsewher e: No Locat ion: [facility] S ource: EHR Data Typist kolton: N Practi ce ID: 0001 Dom lable Time: 03:30:00 PM Tammy ruiz, [facility] 13:14:43 Herpetic vulvovag initis [id number] Completed 201707/27/2021 Herpesvi ral [herpes simplex] vaginiti s;Record ed Elsewher e: No Locat ion: [facility] S ource: EHR Data Typist kolton: N Practi ce ID: 0001 Dom lable Time: 05:00:00 PM Tammy Noriega sara, [facility] 13:15:03 Secondar y amenorrh ea [id number] Completed 201707/27/2021 Secondar y amenorrh ea;Pract ice ID: 0001 Tammy ruiz, [facility] 13:14:25 Pregnanc y detectio n examinat ion Completed 201707/27/2021 Encounte r for pregnanc y test, result positive ;Practic e ID: 0001 Tammy Noriega sara, [facility] 13:15:33 Gestatio n period, 10 weeks [id number] Completed 201707/27/2021 10 weeks gestatio n of pregnanc y;Record ed Elsewher e: No Locat ion: [facility] S ource: EHR Data Typist kolton: N Practi ce ID: 0001 Dom lable Time: 10:00:00 AM Tammy ruiz [facility] 13:15:14 Hemorrha gic complica tion of pregnanc y [id number] Completed 201707/27/2021 Other hemorrha ge in early pregnanc y;Practi ce ID: 0001 Tammy ruiz, [facility] 13:14:23 Antenata l screenin g Completed 201807/27/2021 Encounte r for antenata l screenin g for nuchal transluc ency;Rec orded Elsewher e: No Locat ion: Mookie tom [facility] S ource: EHR Data Typist kolton: N Practi ce ID: 0001 Dom lable Time: 01:00:00 PM Tammy ruiz [facility] 13:14:42 Antenata l screenin g for malforma tion Completed 201807/27/2021 Encounte r for antenata l screenin g for malforma tions;Re corded Elsewher e: No Locat ion: [facility] S ource: EHR Data Typist kolton: N Practi ce ID: 0001 Dom lable Time: 02:30:00 PM Tammy ruiz [facility] 13:15:30 Cyst of vulva [id number] Completed 201807/27/2021 Vulvar cyst;Pra ctice ID: 0001 Tammy ruiz [facility] 13:15:[address] Concept Completed 201807/27/2021 Injury, unspecif ied, initial encounte r;Practi ce ID: 0001 Tammy ruiz, [facility] 13:15:05 Gestatio n period, 28 weeks [id number] Completed 201807/27/2021 28 weeks gestatio n of pregnanc y;Practi ce ID: 0001 Tammy ruiz, [facility] 13:15:35 Gestatio n period, 32 weeks [id number] Completed 201807/27/2021 32 weeks gestatio n of pregnanc y;Record ed Elsewher e: No Locat ion: Justin santos [facility] S ource: EHR Data Typist kolton: N Practi ce ID: 0001 Dom lable Time: 02:30:00 PM Tammy ruiz, [facility] 13:15:34 Uterine size for dates discrepa ncy Completed 201807/27/2021 Uterine size-ingris e discrepa ncy, third trimeste r;Record ed Elsewher e: No Locat ion: [facility] S ource: EHR Data Typist kolton: N Practi ce ID: 0001 Dom lable Time: 02:30:00 PM Tammy ruiz, [facility] 13:14:40 Acute vaginiti s [id number] Completed 201807/27/2021 Vaginiti s;Record ed Elsewher e: No Locat ion: [facility] S ource: EHR Data Typist kolton: N Practi ce ID: 0001 Dom lable Time: 01:00:00 PM Tammy ruiz, [facility] 13:14:54 Vaginiti s in pregnanc y 764202267 Completed 201807/27/2021 Infectio n oth prt genital tract in pregnanc y, unsp trimeste r;Practi ce ID: 0001 Atmmy Hari ruiz, [facility] 13:15:17 Finding of contents of cervix 483949597 Completed 201807/27/2021 Weeks of gestatio n of pregnanc y not specifie d;Practi ce ID: 0001 aTmmy ruiz, [facility] 13:14:59 Normal pregnanc y in multigra natalia [id number] 4106 Completed 201807/27/2021 Encounte r for suprvsn of normal pregnanc y, third trimeste r;Record ed Elsewher e: No Locat ion: [facility] S ource: EHR Data Typist kolton: N Practi ce ID: 0001 Dom lable Time: 11:45:00 AM Tammy Vance sara, [facility] 13:15:21 Obstruct ed labor due to shoulder dystocia 258138934 Completed 201807/27/2021 Obstruct ed labor due to shoulder dystocia ;Practic e ID: 0001 Tammy Noriega sara, [facility] 13:15:32 Single live from singleto n pregnanc y [id number] Completed 201807/27/2021 Single live ;Pr actice ID: 0001 Tammy Noriega sara, [facility] 13:14:28 Gestatio n period, 37 weeks [id number] Completed 201807/27/2021 37 weeks gestatio n of pregnanc y;Practi ce ID: 0001 Tammy Hari ruiz, [facility] 13:15:18 Lochia finding Completed 201807/27/2021 Encounte r for routine postpart um follow-u p;Practi ce ID: 0001 Tammy ruiz, [facility] 13:15:11 Procedur e by method Completed 201807/27/2021 Encounte r for other general counseli ng and advice on contrace ption;Re corded Elsewher e: No Locat ion: [facility] S ource: EHR Data Typist kolton: N Practi ce ID: 0001 Dom lable Time: 01:30:00 PM [facility] 13:15:10 Insertio n of intraute rine contrace ptive device Completed 201807/27/2021 Encounte r for insertio n of intraute rine contrace ptive device;P ractice ID: [address] [facility] 13:15:28 Clinical finding Completed 201807/27/2021 Presence of (intraut erine) contrace ptive device;R ecorded Elsewher e: No Locat ion: [facility] S ource: EHR Data Typist kolton: N Practi ce ID: 0001 Dom lable Time: 10:45:00 AM Tammy ruiz [facility] 13:15:13 Bleeding Completed 201907/27/2021 Abnormal uterine and vaginal bleeding , unspecif ied;Prac sidney ID: 0001 Tammy Noriega [facility], [facility] 13:14:37 Disorder of intraute rine contrace ptive device Completed 201907/27/2021 [facility] compl of intraute rine contrace ptive device, init encntr;P ractice ID: 0001 Tammy Noriega [facility], [facility] 13:15:07 Problem Notes None recorded. Procedures Surgical History Date Name Laterality Status Provider Name and Address Organization Details Recorded Time 10/21/19 24 Date of Last Mammogram completed [facility] 10/04/2024 15:31:17 09/24/19 24 Date of Last Pap [facility] 09/24/2024 11:57:10 10/25/19 22 I&D completed Maria Elena Dominguez [facility] [address], [place], [address], [facility] 10/25/2021 09:41:44 10/25/19 22 biopsy of vulva completed Vanda Schmidt [facility] 07/30/2022 15:24:06 10/06/19 22 Colposcopy completed Maria Elena Dominguez [facility] [address], [place], [address], [facility] 10/06/2021 13:37:00 10/06/19 22 Colposcopy completed Vandadee Schmidt [facility] 10/06/2021 10:48:17 10/06/19 22 Colposcopy completed Vanda Schmidt [facility] 10/06/2021 10:57:22 08/18/19 02 LEEP completed [facility] 10/06/2021 14:19:57 Imaging Results None recorded. Procedure Notes None recorded. Medical Equipment None Reported. Allergies No known drug allergies Medications Name Sig Start Date Stop Date Status Note LastModified by Organization Details LastModified Time Mirena 21 mcg/24 hr (up to 8 years) 52 mg intrauter ine device insert 2018 active Prescrib ed Elsewher e: No Locat ion: Justin santos [facility] M odify By: avery dhillon DateTime : 04/08/20 02:30:00 PM Not Available Not Available Not Available buspirone 5 mg tablet 09/23 completed Not Available Not Available Not Available nystatin 100,000 unit/gram topical ointment APPLY TO THE AFFECTED AREA(S) BY TOPICAL ROUTE 2 TIMES PER DAY 07/30 completed Not Available Not Available Not Available fluconazo le 150 mg tablet take 1 tablet by oral route once active Not Available Not Available No t Available Keflex 500 mg capsule take 1 capsule by oral route TID 03/15 completed Prescrib ed Elsewher e: No Locat ion: Justin santos [facility] odify By: leander gallegos DateTime : 12/08/19 19 01:45:00 PM Not Available Not Available Not Available fluconazo le 200 mg tablet 10/24 completed Not Available Not Available Not Available vitamin E 100 unit capsule 03/15 completed Prescrib ed Elsewher e: Yes Loca tion: Justin santos [facility] odify By: leander gallegos DateTime : 04/10/20 18 03:30:00 PM Not Available Not Available Not Available metronida zole 0.75 % (37.5 mg/5 gram) vaginal gel insert 1 applicat orful by vaginal route every day at bedtime x 5 nights active Not Available Not Available No t Available prednison e 20 mg tablet 07/25 completed Not Available Not Available Not Available terconazo le 0.8 % vaginal cream insert 1 applicat orful by vaginal route every day at bedtime 03/15 completed Prescrib ed Elsewher e: No Locat ion: [facility] odify By: leander gallegos DateTime : 12/10/19 10:49:44 AM Not Available Not Available Not Available metronida zole 500 mg tablet 10/24 completed Not Available Not Available Not Available acyclovir 400 mg tablet TAKE 1 TABLET BY MOUTH EVERY 12 HOURS 07/27 completed Not Available Not Available Not Available valacyclo vir 500 mg tablet TAKE 1 TABLET DAILY active Not Available Not Available No t Available nystatin- triamcino lone 100,000 unit/gram -0.1 % topical ointment APPLY TO THE AFFECTED AREA(S) BY TOPICAL ROUTE 2 TIMES PER DAY x 7 days if needed 09/23 completed Not Available Not Available Not Available amoxicill in 875 mg tablet 12/10 completed Not Available Not Available Not Available Zoloft 50 mg tablet take 1 tablet by oral route every day 03/15 completed Prescrib ed Elsewher e: No Locat ion: Justin santos [facility] odify By: leander gallegos DateTime : 10/10/19 18 03:30:00 PM Not Available Not Available Not Available triamcino lone acetonide 0.1 % topical ointment APPLY A THIN LAYER TO THE AFFECTED AREA(S) BY TOPICAL ROUTE 2 TIMES PER DAY 07/30 completed Not Available Not Available Not Available dexametha sone 4 mg tablet 12/10 completed Not Available Not Available Not Available polymyxin B sulfate 10,000 unit-trim ethoprim 1 mg/mL eye drops 07/25 completed Not Available Not Available Not Available ibuprofen 600 mg tablet 12/10 completed Not Available Not Available Not Available Vitamin D2 1,250 mcg (50,000 unit) capsule take 1 capsule by oral route every week 03/15 completed Prescrib ed Elsewher e: Yes Loca tion: Justin santos [facility] odify By: leander [email or web address] DateTime : 07/09/20 17 04:30:00 PM Not Available Not Available Not Available NuvaRing 0.12 mg-0.015 mg/24 hr vaginal insert 1 vaginal ring by vaginal route every month leave in place for 3 weeks, remove for 1 week 02/27 completed Prescrib ed Elsewher e: No Locat ion: Justin santos [facility] odify By: mack [email or web address] DateTime : 10/10/19 18 03:30:00 PM Not Available Not Available Not Available Probiotic 10 billion cell capsule 03/15 completed Prescrib ed Elsewher e: Yes Loca tion: Justin santos [facility] odify By: leander gallegos DateTime : 07/09/20 17 04:30:00 PM Not Available Not Available Not Available Lomedia 24 Fe 1 mg-20 mcg (24)/75 mg (4) tablet take 1 tablet by oral route every day 10/10 completed Prescrib ed Elsewher e: No Locat ion: Justin santos [facility] odify By: fabian gallegos DateTime : 10/10/19 18 03:30:00 PM Not Available Not Available Not Available Vitals Date Recorded Body height Body mass index (BMI) Body weight Systolic And Diastolic Provider Name and Address Organization Details Last Updated DateTime 09/23/2023 170.18 cm 39.3 kg/m2 930194.68 g 122/79 mm[Hg] Svetlana Manolo [facility] 09/23/2023 18:52:17 Date Recorded Body height Body mass index (BMI) Body weight Systolic And Diastolic Provider Name and Address Organization Details Last Updated DateTime 10/04/2024 170.18 cm 40 kg/m2 663349.49 g 133/94 mm[Hg] Latosha Patel [facility] 10/04/2024 15:42:05 Date Recorded Body height Body mass index (BMI) Body weight Systolic And Diastolic Provider Name and Address Organization Details Last Updated DateTime 10/24/2021 170.18 cm 39 kg/m2 912850.5 g 120/78 mm[Hg] Dorinda Horowitz [facility] 10/24/2021 16:11:15 Date Recorded Systolic And Diastolic Provider Name and Address Organization Details Last Updated DateTime 12/10/2022 126/78 mm[Hg] Maria Elena Dominguez, [facility] [address], [place], [address], [facility] 12/10/2022 17:40:22 Date Recorded Body height Body mass index (BMI) Body weight Provider Name and Address Organization Details Last Updated DateTime 12/10/2022 170.18 cm 39.6 kg/m2 984211.87 g Dorinda Leon [facility] 12/10/2022 17:24:49 Date Recorded Body height Body mass index (BMI) Body weight Systolic And Diastolic Provider Name and Address Organization Details Last Updated DateTime 07/30/2022 170.18 cm 38.5 kg/m2 060977.72 g 126/75 mm[Hg] Vanda Schmidt [facility] 07/30/2022 16:09:41 Social History Question Answer Notes LastModified by Organizat ion Details LastModified Time Tobacco Smoking Status Never Smoker Dorinda Horowitz [facility], [facility] 10/24/2021 16:11:44 Do You Have An Advance Directive? No Information n ot available 10/24/2021 How Many Years Have You Consumed Alcohol? 10+ Information not available 10/24/2021 Are You Blind Or Do You Have Difficulty Seeing? No [email or web address] Information n ot available 10/06/2021 What Is Your Level Of Caffeine Consumption? Moderate Information not available 09/23/2023 How Much Tobacco Do You Chew? None Information not available 10/24/2021 In The 14 Days Before Symptom Onset, Have You Had Close Contact With A Laboratory-confirm ed COVID-19 While That Case Was Ill? No [email or web address] Information n ot available 10/06/2021 In The 14 Days Before Symptom Onset, Have You Had Close Contact With A Person Who Is Under Investigation For COVID-19 While That Person Was Ill? No [email or web address] Information not available 10/06/2021 Have You Been To An Area Known To Be High Risk For COVID-19? No [email or web address] Information not available 10/06/2021 Are You Deaf Or Do You Have Serious Difficulty Hearing? No [email or web address] Information not available 10/06/2021 What Type Of Diet Are You Following? REGULAR [email or web address] Information n ot available 10/06/2021 What Is The Highest Grade Or Level Of School You Have Completed Or The Highest Degree You Have Received? [id number] Information not available 10/24/2021 Are There Any Guns Present In Your Home? No Information not available 10/24/2021 Have You Ever Been Counseled For Unhealthy Alcohol Use? No Information not available 10/24/2021 Do You Use Protection During Sex? Usually Information not available 09/23/2023 Do You Use Your Seat Belt Or Car Seat Routinely? Yes Information not available 10/06/2021 Do You Have Smoke And Carbon Monoxide Detectors In Your Home? Yes [email or web address] Information not available 10/06/2021 How Much Tobacco Do You Smoke? No Information not available 10/24/2021 Do You Use Sunscreen Routinely? Yes [email or web address] Information not available 10/06/2021 Has Tobacco Cessation Counseling Been Provided? No Information not available 10/24/2021 Have You Used IV Drugs? No Information not available 10/24/2021 Do You Have Difficulty Walking Or Climbing Stairs? No Information not available 10/24/2021 Sex: Unknown Functional Status Question Answer Note LastModified by Organizat ion Details LastModified Time Do you use any illicit or recreational drugs? No [email or web address] Information not available 10/06/2021 Do you or have you ever used any other forms of tobacco or nicotine? No Information not available 10/24/2021 What is your level of alcohol consumption? Occasional [email or web address] Information not available 10/06/2021 Are you able to walk independently without assistance or assistive devices? YESWOREST [email or web address] Information not available 10/06/2021 Are you able to care for yourself independently? 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 No Information not available 10/24/2021 What is your exercise level? Occasional [email or web address] Information not available 10/06/2021 Mental Status Question Answer Note LastModified by Organization D etails LastModified Time Do you feel stressed (tense, restless, nervous, or anxious, or unable to sleep at night)? [id number] [email or web address] Information not available 10/04/2024 Family History Relationship Description Onset Age of this Age Resolved Age Notes LastModified by Organization Details LastModified Time Maternal Aunt Malignant neoplasm of breast 40 [email or web address] Not available 2024 15:30:17 Maternal Aunt Malignant neoplasm of breast [email or web address] Not available 2024 15:30:17 Mother Asthma Not available 08/2021 15:13:04 Mother Malignant neoplasm of lung Not available 2021 15:12:54 Sister Asthma Not available 08/2021 15:12:28 Father Heart disease Not available 2021 15:12:49 Father Diabetes mellitus Not available 2021 15:13:13 Unspecified Relation Malignant neoplasm of breast Not available 2021 16:11:19 Notes:Cancer risk form compl ete 07/26/2021 Medical History Condition Response Allergies (Food, seasonal, environmental ) N Other N Blood Transfusion N Drug/Latex Allergies/Reactions N Breast Cancer N Lung Disease N Dermatologic Disorders N Defects or Inherited Disease N Breast Problem N Gestational Diabetes N Hematologic disorders N Anesthesia Complications N History of STI Y Deep Vein Thrombosis N Polycystic ovary syndrome N Anxiety Disorder N Autoimmune disease N Arthritis N Polyps N Infertility N Acid Reflux (GERD) N History of abnormal pap Y Cancer N Stroke N Varicosities N Neurologic/Epilepsy N Endometriosis N High Cholesterol N Fibromyalgia N Headaches N Kidney Disease N Heart Problems N Thyroid Problems N Kidney or Bladder Problems N GI Problems N Eating Disorder N Anemia Y Art (IVF or FET) N Psychiatric Illness N Diabetes N Ovarian Cancer N Pulmonary (TB, Asthma) N Hepatitis/Liver Disease N No Past Medical History N Eczema N Urinary Tract Infection N Abuse/Domestic Violence N Asthma N Trauma/Violence N Depression/ depression N Heart Disease N Pre-Eclampsia N Hypertension N Osteoporosis N Thrombophilias N Gynecological History Statement/Question Response Date of Last Mammogram 10/21/2023 Flow Light Date of LMP 09/20/2024 N Was last menstrual period normal N STIs/STDs Yes Date of control 04/09/2019 IUD Desired Control Method IUD Abnormal Pap Yes On BCP's at Conception? N Colposcopy 10/06/2021 HPV Vaccine N Current Control Method IUD Age at First Child 18 Are cycles usually normal N Most Recent Bone Density Sexually Active? N Menses Monthly N Age of first menstrual cycle 13 Date of Last Pap Smear 09/24/2023 Sexual Problems? N LMP Approximate N Obstetrics History GPAL:G 2 P 0 0 0 2 Type Value Living 2 Total 2 Past Encounters Encounter ID Performer Location Encounter Start Date Encounter Closed Date Diagnosis/Indication Diagnosis SNOMED-CT Code Diagnosis ICD10 Code Diagnosis IMO Codes Diagnosis Note [id number] MIAH [facility] [address] [address] 07/04/2020 09:38:49 07/04/2020 12:14:30 Abnormal uterine bleeding 6563183965 9100 N93.9 -Mirena IUD placed 1 year ago -Period returned in March following weaning of breastfeed ing. Period lasted 2 weeks with moderate flow, she had one week of no bleeding, and then 5 days of spotting. Since then she has monthly normal periods -IUD strings seen in place -Patient educated that this normal due to weaning of breastfeed ing, her period is returning and her body is adjusting, encouraged to keep a menstrual diary and RTC if abnormal bleeding or prolonged bleeding occurs If VB becomes more irregular and less like a menses will call to schedule TVUS. Time spent in visit is a total of 15 mins with at least 50% of visit consisting of counseling and review of plan of care. [id number] Maria Elena Dominguez , [facility] [address] [address] 07/25/2020 13:52:36 07/25/2020 14:15:51 Gynecologic examination [id number] Z01.419 Take Calcium with Vitamin D 1200mg daily if not receiving in daily diet. It is strongly advised to have an annual flu shot and up can obtain at most pharmacies . If you have not had a TDap shot in the last 10 years you should obtain one as well. Discussed with patient & provided with informatio n regarding Gardisil vaccine to prevent the 4 strains for HPV that cause cervical cancer if under age 26. Encourage safe sexual practices, to use condoms and limit partners if not already in a monogamous relationsh ip. Do monthly self breast exams. Have mammogram yearly or every other year depending on family history. BRCA testing is now available for patients with strong genetic history of female cancer. If interested contact the office. Engage in daily exercise of low impact aerobic exercise 45-60 minutes 4-5 times weekly. Avoid tobacco and illicit drugs as well as using moderation with alcohol intake less than 1-2 8 oz beverages daily. This lifestyle behavior pattern will lead to less health conditions and longer life span. If BMI greater than 25 weight watchers or dietary consult advised. Patient received above instructio ns, and questions have been answered. If you have any questions please call or respond to this email. Patient was made aware of the patient portal and may obtain a paper copy of today's plan if desired. Pap/hpv updated Last pap 2018 wnl but pap only done Monogamous relationsh ip Declines need std acreening IUD placed mirena 04/08/2019 Still has menses on this device. [id number] Rosibel Ash CNM [facility] [address] [address] 07/27/2021 16:24:51 07/30/2021 19:19:40 Gynecologic examination 83673151 Z01.419 Z11.51 Take Calcium with Vitamin D 1200mg daily if not receiving in daily diet. It is strongly advised to have an annual flu shot and up can obtain at most pharmacies . If you have not had a TDap shot in the last 10 years you should obtain one as well. Discussed with patient & provided with informatio n regarding Gardisil vaccine to prevent the 4 strains for HPV that cause cervical cancer if under age 26. Encourage safe sexual practices, to use condoms and limit partners if not already in a monogamous relationsh ip. STD screen on pap and bloodwork. Do monthly self breast exams. Have mammogram yearly or every other year depending on family history. BRCA testing is now available for patients with strong genetic history of female cancer. If interested contact the office. Engage in daily exercise of low impact aerobic exercise 45-60 minutes 4-5 times weekly. Avoid tobacco and illicit drugs as well as using moderation with alcohol intake less than 1-2 8 oz beverages daily. This lifestyle behavior pattern will lead to less health conditions and longer life span. If BMI greater than 25 weight watchers or dietary consult advised. Patient received above instructio ns, and questions have been answered. If you have any questions please call or respond to this email. Patient was made aware of the patient portal and may obtain a paper copy of today's plan if desired. Sexually t ransmitted infectious disease 9594424 A64 Genital he rpes simplex 15588136 A60.9 Has not been good about taking daily. Has had mild outbreaks every couple months. Will start taking valacyclov ir 500mg daily and if an outbreak can increase to 1000mg daily x 3 days. Pt is recently and is a little tearful about the thought of becoming sexually active. Discussed transmissi on risks and encouraged her to be up front about diagnosis. [id number] Maria Elena Dominguez [facility] [address] [address] 07/30/2022 15:32:35 07/31/2022 15:48:29 Gynecologic examination 24743507 Z01.419 Take Calcium with Vitamin D 1200mg daily if not receiving in daily diet. It is strongly advised to have an annual flu shot and up can obtain at most pharmacies . If you have not had a TDap shot in the last 10 years you should obtain one as well. Discussed with patient & provided with informsamuelo brandie regarding Gardisil vaccine to prevent the 4 strains for HPV that cause cervical cancer if under age 26. Encourage safe sexual practices, to use condoms and limit partners if not already in a monogamous relationsh ip. Do monthly self breast exams. Have mammogram yearly or every other year depending on family history. BRCA testing is now available for patients with strong genetic history of female cancer. If interested contact the office. Engage in daily exercise of low impact aerobic exercise 45-60 minutes 4-5 times weekly. Avoid tobacco and illicit drugs as well as using moderation with alcohol intake less than 1-2 8 oz beverages daily. This lifestyle behavior pattern will lead to less health conditions and longer life span. If BMI greater than 25 weight watchers or dietary consult advised. Patient received above instructio ns, and questions have been answered. If you have any questions please call or respond to this email. Patient was made aware of the patient portal and may obtain a paper copy of today's plan if desired. Pap/hpv sent STD Screen sent Genetic Screen discussed Colon Screen na Dexa Screen na Routine Labs PCPMammo due age 39yo unless otherwise indicated. Genital he rpes simplex [id number] A60.9 [facility] [id number] Maria Elena Dominguez [facility] [address],[place] [address] 10/06/2021 10:35:17 10/08/2021 10:29:06 Human papillomavirus deoxyribonucleic acid detected, high risk on cervical specimen [id number] R87.810 See procedure notes.Post -procedure instructio ns reviewed with understand ing verbalized .Will contact with results & next steps in plan of care. [id number] Maria Elena Dominguez [facility] [address],[place] [address] 10/11/2021 13:15:37 10/11/2021 15:08:57 Vaginitis 01155052 N76.0 Treated for BV/Yeast prevention .Call if any issues.Dec lined need std screen Time spent in visit is a total of 15 mins with at least 50% of visit consisting of counseling and review of plan of care.Addit ional precaution luis measures were taken to minimize potential exposure to the Covid-19 virus during this patient s visit, including available hand quickbooks bookkeeper upon arrive, temperatur e check and being asked a series of screening questions. All staff wore face coverings during this encounter, as well as provided additional cleaning and sanitizing of all surfaces, including countertop s, pens, chairs, door handles, light switches, etc, prior to and following the patient s visit. [id number] Maria Elena Dominguez [facility] [address],[place] [address] 10/24/2021 16:03:03 10/25/2021 16:02:35 Labial cyst 518177557 N90.7 See procedure notes. [id number] Maria Elena Dominguez [facility] [address],[place] [address] 12/10/2022 17:17:01 12/10/2022 17:51:26 Vulval irritation 339001435 N90.89 Today we discussed a trial of mycolog ointment prn, baking soda soaks & will send in STD screen to ensure no other issues. Rx sent Counseled on medication R/B's, Most common side effects, & use. All questions were answered to patient satisfacti on. Time spent in visit is a total of 15 mins with at least 50% of visit consisting of counseling and review of plan of care. [id number] Maria Elena Dominguez [facility] [address],[place] [address] 09/23/2023 18:46:21 09/24/2023 14:56:05 Gynecologic examination 94542023 Z01.419 Z11.51 Z11.3 Take Calcium with Vitamin D 1200mg daily if not receiving in daily diet. It is strongly advised to have an annual flu shot and up can obtain at most pharmacies . If you have not had a TDap shot in the last 10 years you should obtain one as well. Discussed with patient & provided with informatio n regarding Gardisil vaccine to prevent the 4 strains for HPV that cause cervical cancer if under age 26. Encourage safe sexual practices, to use condoms and limit partners if not already in a monogamous relationsh ip. Do monthly self breast exams. Have mammogram yearly or every other year depending on family history. BRCA testing is now available for patients with strong genetic history of female cancer. If interested contact the office. Engage in daily exercise of low impact aerobic exercise 45-60 minutes 4-5 times weekly. Avoid tobacco and illicit drugs as well as using moderation with alcohol intake less than 1-2 8 oz beverages daily. This lifestyle behavior pattern will lead to less health conditions and longer life span. If BMI greater than 25 weight watchers or dietary consult advised. Patient received above instructio ns, and questions have been answered. If you have any questions please call or respond to this email. Patient was made aware of the patient portal and may obtain a paper copy of today's plan if desired. Pap/hpv sentSTD Screen sentGeneti c Screen discussedC olon Screen naDexa Screen naRoutine Labs PCPMammo due age 39yo unless otherwise indicated. Pain of right breast 087 7610240 N64.4 Will update US as breasts are very dense and ensure no issues we cannot detect on exam today since this issue has been here fo >2mos Vaginitis 81567315 N76.0 Suspect yeast on exam & possibly BVWe will go ahead and treat yeast; then wait for pap results to return and see if they report BV before using abx.Discus sed prevention /suppressi on BV/yeast x 3mos using boric acid tablets vaginally [id number] Leo Hyman MD [facility] [address] [address] 10/04/2024 15:16:16 10/04/2024 16:14:03 Gynecologic examination 50432587 Z01.419 Annual gynecologi jase exam performed. Patient will come back in a year unless there are new symptoms. Suggest Calcium with Vitamin D if not eating in diet. Patient advised to get annual flu shot. Recommend yearly physicals and perform monthly breast exams. Genetic testing is available for patients with family history of cancer. Engage in safe sexual practices, use condoms. Encouraged to have daily exercise. Avoid tobacco and illicit drugs, moderation of alcohol. If BMI greater than 25 dietary consult advised. If you have any questions please call or email. mammogram- followed by [facility] for yearly mammograms - monitoring left breast fibroadeno ma colon cancer screening - n/a DEXA scan- n/a Pap smear- UTD (2023 - WN), will repeat per ASCCP guidelines laboratory evaluation - PCP STI testing - declined A Mirena IUD prevents for up to 8 years, and also helps with heavy periods for up to 5 years in women who choose an IUD for control. Health Concerns Section Related Observation LastModified by Organization Detai ls LastModified Time None Recorded Concern Status LastModified by Organization Details LastModified Time None Recorded Advance Directives Directive N: Payers Insurance Date Sequence Insurance Name Policy Number Policy Neal Covered Member ID Neal Member ID Guarantor Name 10/04/2024 1 [facility] PRIOR TO 02/15/2021 (MEDICAID REPLACEMENT - HMO) Daniela Norris [id number] Daniela Norris 10/04/2024 1 [facility] ON OR AFTER 02/15/21 (MEDICAID REPLACEMENT - HMO) Daniela Norris [id number] Daniela Norris 10/04/2024 1 [facility] PRIOR TO 02/15/2021 (MEDICAID REPLACEMENT - HMO) Daniela Norris [id number] Daniela Norris 10/04/2024 1 [facility] [id number] Daniela Norris [id number] Daniela Norris Notes Date Note Type Note Provider Name and Address Organization Details Recorded Time 10/25/19 22 text/ht ml ROS as noted in the HPI Here for removal of labial Sebaceous cysts removal/drainage. Maria Elena Dominguez, [facility] [address], [place], [address], [facility] 10/25/2021 09:43:06 07/30/20 22 text/ht ml Annual GYNReported by PatientHistoryFor history, patient reportsno gynecologic complaints.Genitourinary symptomsFor menstrual cycle, patient reportsnormal menses. For urinary symptoms, patient reportsno hematuriaandno incontinence. For vulva, patient reportsno genital lesion. For vagina, patient reportsnormal vaginal discharge.Breast symptomsFor breast, patient reportsno breast pain,no breast lump, andno nipple discharge.ContraceptionFor current contraception, patient reportssatisfied with current contraceptionandintrauterine device (iud).Endocrine symptomsFor sexual complaints, patient reportsno sexual complaints,no pain during intercourse, andnormal libido. For menopausal symptoms, patient reportsno menopausal symptomsandnormal vaginal lubrication.Psychological symptomsFor psychological symptoms, patient reportsno depression,no anxiety, andno pmdd.Preventative measuresFor preventive measures, patient reportsencourage self breast examination,encourage regular exercise,encourage no tobacco use,encourage regular mammograms starting age 40, andhistory of abnormal pap smear/cervical dysplasia. Maria Elena Dominguez [facility] [address], [place], [address], [facility] 07/30/2022 17:17:47 12/11/19 23 text/ht ml ROS as noted in the HPI Here tody for possible vaginal infection.Friday for last week noticed a lot of vulva itching inner right labia majora.Feels this has calmed down but still slightly there.New sexual partnerTakes HSV suppressive therapyNo lesionsRight side onlyNoticed a change in her d/c this week. Neg pain of abd/pelvis/flankNeg urinary sx'sNeg GI sx'sNeg N/V/F/C/DNeg , odor, irritation, itching Maria Elena Dominguez [facility] [address], [place], [address], [facility] 12/10/2022 17:42:50 09/23/19 24 text/ht ml Annual GYNReported by PatientGenitourinary symptomsFor menstrual cycle, patient reportsnormal menses. For urinary symptoms, patient reportsno hematuriaandno incontinence. For vulva, patient reportsno genital lesion. For vagina, patient reportsnormal vaginal discharge.Breast symptomsFor breast, patient reportsno breast pain,no breast lump, andno nipple discharge.ContraceptionFor current contraception, patient reportssatisfied with current contraceptionandintrauterine device (iud).Endocrine symptomsFor sexual complaints, patient reportsno sexual complaints,no pain during intercourse, andnormal libido. For menopausal symptoms, patient reportsno menopausal symptomsandnormal vaginal lubrication.Psychological symptomsFor psychological symptoms, patient reportsno depression,no anxiety, andno pmdd.Preventative measuresFor preventive measures, patient reportsencourage self breast examination,encourage regular exercise,encourage no tobacco use,encourage regular mammograms starting age 40, andfollowed with yearly pap smears. Maria Elena Dominguez, [facility] [address], [place], [address], [facility] 09/24/2023 14:15:50 10/04/19 25 text/ht ml Annual GYNReported by PatientGenitourinary symptomsFor menstrual cycle, patient reportsirregular cycle intervals (with mirena). For urinary symptoms, patient reportsno hematuriaandno incontinence. For vulva, patient reportsno genital lesion. For vagina, patient reportsnormal vaginal discharge.Breast symptomsFor breast, patient reportsno breast pain,no breast lump, andno nipple discharge.ContraceptionFor current contraception, patient reportssatisfied with current contraceptionandintrauterine device (iud).Endocrine symptomsFor sexual complaints, patient reportsno sexual complaints,no pain during intercourse, andnormal libido. For menopausal symptoms, patient reportsno menopausal symptomsandnormal vaginal lubrication.Psychological symptomsFor psychological symptoms, patient reportsno depression,no anxiety, andno pmdd.Preventative measuresFor preventive measures, patient reportsencourage self breast examination,encourage regular exercise,encourage no tobacco use, andencourage regular mammograms starting age 40. Patient presents for annual well woman exam. 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 09/18/19 22 1 CLOSED Fetus Data First Name Last Name Admitted to NICU Weight (g) Sex Living Outcome Pediatric Complications Fetus ID Race Codes Race Delivery Type 3486.76 1704 M Full Term [id number] Vaginal Delivery Mikal Calculation Initial Mikal Date Initial Exam Date Initial Exam Provider Initial Ultrasound Date Last Menstrual Period Date Ultra Sound Weeks Gestation 0 Eighteen To Twenty Week Mikal Update Ultra Sound Date Fundal Height At Umbil Quickening Date Ultra Sound Latest Weeks Gestation Final Mikal Confirmed By Final Mikal Confirmed Date Final Mikal Date Ultra Sound Latest Days Gestation 0 0 Menstrual History Last Menstrual Date Menses Monthly On Bcp Conception Prior Menses Frequency Hcg Plus Date Menarche Onset Age Delivery Information Delivery Date Delivery Type Labor Anesthesia Weeks Gestation Incision Type Labor Labor Length Hrs Delivered By Post Complications Tubal Sterilization Discharge Date Comments 4 37 Discharge Information Feeding Method Contraceptive Method Maternal HG B and HCT Levels Ob Episode Information Episode Created Date Number of Fetuses Patient Bloodtype Patient rh Status Prepregnancy Weight lbs Domestic Partner Domestic Partner Phone Father Name 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 Status 09/18/19 22 1 CLOSED Fetus Data First Name Last Name Admitted to NICU Weight (g) Sex Living Outcome Pediatric Complications Fetus ID Race Codes Race Delivery Type 3118.44 5 F Full Term [id number] Vaginal Delivery Mikal Calculation Initial Mikal Date Initial Exam Date Initial Exam Provider Initial Ultrasound Date Last Menstrual Period Date Ultra Sound Weeks Gestation 0 Eighteen To Twenty Week Mikal Update Ultra Sound Date Fundal Height At Umbil Quickening Date Ultra Sound Latest Weeks Gestation Final Mikal Confirmed By Final Mikal Confirmed Date Final Mikal Date Ultra Sound Latest Days Gestation 0 0 Menstrual History Last Menstrual Date Menses Monthly On Bcp Conception Prior Menses Frequency Hcg Plus Date Menarche Onset Age Delivery Information Delivery Date Delivery Type Labor Anesthesia Weeks Gestation Incision Type Labor Labor Length Hrs Delivered By Post Complications Tubal Sterilization Discharge Date Comments 9 37 Discharge Information Feeding Method Contraceptive Method Maternal HG B and HCT Levels
--- NOTE | 2025-08-29 08:43 | WPDHOMESLEEP ---
Sleep Study - Home Unattended Date of Study: 07/19/25 Ordering Provider: Trina Sparks APRN Interpreting Provider: Clara Hoskins DO Home Sleep Study Type: Watch PAT Height: 1.7 m Weight: 112.491 kg Body Mass Index: 38.8 Neck Circumference (inches): 14 [place]: 15 Reason for Sleep Study Excessive daytime sleepiness Sleep History The patient is a 40-year-old female that had a sleep study ordered for evaluation of sleep apnea patient admits to excessive daytime sleepiness and unwanted behaviors during sleep. She denies snoring. She denies having interruptions in breathing while asleep. She denies choking or gasping at night. She denies having trouble breathing on her back. She does have morning headaches. She denies having a dry or sore mouth / throat in the morning. She denies nocturnal heartburn. She denies nocturia. She denies having difficulty falling asleep. She denies having difficulty staying asleep. She denies having difficulty returning to sleep if she wakes up throughout the night. She denies any hypnotic or sedative use. She denies feeling anxious about sleep. She does feel tired or sleepy during the day. She does feel tired in the morning. She does have the urge to fall asleep during the day. She does feel drowsy while driving. She denies sleep paralysis, cataplexy and hypnagogic/ hypnopompic hallucinations. She does clench or grind her teeth. She denies kicking or jerking her legs excessively. She denies having a restless feeling in her legs. She goes to bed at 11:00 p.m. on work days and at 1:00 a.m. on her days off. She gets 6 hours of sleep on work days and a hours on her days off. Her sleep is somewhat restorative on days off. She denies taking any planned naps. She denies dream enactment behavior. She denies sleep walking. She consumes 1-2 cups of caffeinated beverage per day. She consumes 1 alcoholic beverage 1-2 nights per week. She denies tobacco use. She denies exercising on a regular basis. [facility]LY [facility] Past Medical History Medical History History of chicken pox (~1990) Depression Low vitamin D level Family History Family History Father Carcinoma of colon, Onset Age: 64 Social History Social History Smoking status: Never smoker Alcohol intake: current Substance use: never Substance use type: does not use Lack of Transportation: No Lack of Food: Never True Current Housing: I Have Housing Concerned About Future Housing: No Difficulty Paying Gas/Electric Bills: No Difficulty Paying for Meds: No Currently Unemployed: No Education: Bachelor's Degree Difficulty w/ Childcare or Family Care: No Living arrangements: with family Occupation/Education: occupation 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 Gender identity (if verbalized by the patient): Female Agree to blood products: Yes Medications Home Medications ?Medication ?Instructions ?Recorded ?Confirmed ?Type valacyclovir 500 mg tablet 500 mg PO DAILY 03/19/22 07/05/25 History ferrous sulfate 325 mg (65 mg 325 mg PO 4XW 01/12/25 07/05/25 History iron) tablet (Feosol) mecobalamin (vitamin B12) 1,000 1,000 mcg PO DAILY 01/12/25 07/05/25 History mcg chewable tablet ergocalciferol (vitamin D2) 1,250 1,250 mcg PO WEEKLY #12 caps 01/19/25 07/05/25 Rx mcg (50,000 unit) capsule Sleep Procedure The sleep study was completed using [employer] a technically adequate device with seven channels: peripheral arterial tone, actigraphy, body position, snore, respiratory movement, pulse oximetry, sleep staging, and heart rate. Prior to using the device, the patient received verbal and written instructions for its application and was provided with the help desk phone number for additional telephonic instruction with 24-hour availability of qualified personnel to answer questions. The study was scored using CMS guidelines. Sleep Architecture The total recording time is 6 hrs, 50 min. The total sleep time is 6 hrs, 22 min. Sleep latency is 6 minutes. REM latency is 111 minutes. The patient had 6 episodes of waking. Sleep architecture shows 12.6% deep sleep, 61.0% light sleep, and (as % Total Sleep Time) showed NREM (Light 61.0%; Deep 12.6%), and a 26.4% stage REM. The patient spent 9.5% of total sleep time in the supine position. Sleep efficiency was 93.17. Respiratory Analysis The overall AHI (pAHI 4%:) is 1.9. The overall AHI (pAHI 3%:) is 3.6. The central AHI is 1.5. The AHI was 3.0 in NREM and 5.4 in REM sleep. The AHI was 0.0 in Supine and 4.0 in Non-supine sleep. Percent of Cheikh Matos respirations is 0.0. Oximetry Data The oxygen desaturation index (SHARAD 4%:) is 0.5. The mean saturation is 96%, and the lowest saturation is 92%. Time spent with saturation < 88% is 0.0 minutes. Snoring Profile Snoring average intensity is 41 dB. The patient snored above 45 decibels for 14.5 minutes, 3.8% of sleep time. Cardiac Profile The average pulse rate is 69 beats per minutes. The lowest pulse rate is 51 bpm. The highest pulse rate reported is 98 bpm. Atrial fibrillation was not detected. Premature beats occur Not detected per minute. Assessment and Plan Assessment and Plan (1) Sleep disturbances: Code(s): G47.9 - Sleep disorder, unspecified Status: Acute Assessment and Plan: The patient had an overall AHI of 1.9 with desaturation down to 92%. This is not consistent with sleep-disordered breathing. Due to the patient's excessive daytime sleepiness, further evaluation is recommended. I recommend that the patient have a polysomnogram followed by a MSLT. Data The data obtained during this sleep study is adequate for interpretation. Certification This sleep study has been reviewed by a board certified sleep medicine physician.
[2025-08-29 15:21] VITALS: BMI 38.8
== END ==
PROVIDERS: PCP Family Medicine; Visit Provider Nurse Practitioner Family
DX: G47.9 Sleep disorder, unspecified (principal)
CPT/HCPCS: 95800